=== PATIENT | female | born 1935 | race African-American/Black ===

== ENCOUNTER → 2020-03-17 | Outpatient (CLI) | payer OTHER ==
[~2020-03-17] MED LIST: ATENOLOL 50MG T50 M1 PO; CALCIUM 500+D1 EAC2 PO; CLARITIN10 M1 PO; DRY EYE RELIEF15 ML OPHTHALMIC; HYDROCHLOROTHIA25 M2 PO; IBUPROFEN200 M1 PO; MULTI VITAMIN1 EACH PO; NORVASC5 MG PO; VITAMIN B-121000 MC2 SUBLING; VITAMIN C500 M2 PO
== END ==
LOC: LAB 08:00
PROVIDERS: ATTEND Student in an Organized Health Care Education/Training Program
DX: Z01.812 Encounter for preprocedural laboratory examination (principal); Z11.59 Encounter for screening for other viral diseases

== ENCOUNTER 2020-03-22 10:51 | Day surgery (SDC) | payer OTHER ==
[2020-03-12 09:57] LABS: URINE BILIRUBIN NEGATIVE (Negative); URINE BLOOD NEGATIVE (Negative); URINE CLARITY CLEAR; URINE COLOR YELLOW; URINE GLUCOSE-RANDOM* NEGATIVE (Negative); URINE KETONES NEGATIVE (Negative); URINE NITRITE-REFLEX NEGATIVE (Negative); URINE PROTEIN (DIPSTICK) NEGATIVE (Negative); URINE UROBILINOGEN 0.2 E.U./dl (0.2-1.0)
[2020-03-12 09:58] LABS: URINE LEUKOCYTES-REFLEX 1+ (Negative)
[2020-03-12 10:03] LABS: BACTERIA-REFLEX None Seen /HPF (None Seen); CRYSTALS None Seen /LPF (None Seen); SQUAMOUS 0-3 Few /LPF (0-3); URINE RBC None Seen /HPF (0-2); URINE WBC-REFLEX 0-5 Rare /HPF (0-5)
[2020-03-12 10:12] LABS: PROTIME 10.1 Seconds (9.3-11.4)
[2020-03-12 12:40] LABS: HEMOGLOBIN 12.8 gm/dL (12.0-15.0); MCH 31.4 pg (26.0-34.0); MCHC 33.6 g/dL (28.0-37.0); MCV 93.4 fL (80.0-100.0); RBC 4.07 mil/uL (4.20-5.00); RDW 13.2 % (10.5-14.5); WBC 5.8 thou/uL (4.0-11.0)
[2020-03-12 12:44] LABS: ALBUMIN 4.2 g/dL (3.4-5.0); CALCIUM 9.5 mg/dL (8.5-10.1)
[~2020-03-22] VITALS: Ht 162.6 cm; Wt 56.2 kg
[2020-03-22 13:17] VITALS: BP 177/76
[2020-03-22 16:48] VITALS: BP 149/82
--- NOTE | 2020-03-22 17:17 | NUR ---
PATIENT ADMITTED FROM OR WITH LEFT KNEE REPLACEMENT. BRITTANY DRESSING/SCD'S/KNEE HIGH STEWART HOSE, POLAR PACK. PATIENT DENIES PAIN, NO C/O NAUSEA. REGULAR DIET IN FOR DINNER. PAIENT HAS RIGHT FOREARM IV IN PLACE, IV FLUIDS AT 100CC/HR. PATIEN HAS URINATED X 3, PATIENT C/O LEAKAGE/RETENTION/URGENCY, NO C/O PAIN WHEN URINATING, PATIENT JUST FINISHED PO ABX FOR UTI. REPORT GIVEN TO DANIAL/RN. ADMISSION COMPLETED, EXCEPT CARE PLAN.
[2020-03-22 21:07] VITALS: BP 141/65
--- NOTE | 2020-03-23 01:46 | NUR ---
ASSUMED PT CARE AT APPROX 1900.PT DENIED PAIN SO FAR.PT HAD TWO EPISODE OF N/V WHEN SHE GOT OUT OF BED TO THE [facility],MANAGED WITH MED.PT VOIDING ADEQUATELY.PT CONT ON IVF AND IV ABX ORDERED.DRSG TO HER L HIPC/D/I WITH POLAR PACK IN PLACE.STEWART AND SCD IN PLACE.PT RESTING ON HER BED AT THIS TIME.FALL PRECAUTIONS IN PLACE,CALL LIGHT WITHIN REACH.
[2020-03-23 06:47] LABS: HEMATOCRIT 28.4 % (37.0-47.0); HEMOGLOBIN 9.6 gm/dL (12.0-15.0); MCH 31.3 pg (26.0-34.0); MCHC 33.9 g/dL (28.0-37.0); MCV 92.4 fL (80.0-100.0); RBC 3.08 mil/uL (4.20-5.00); WBC 11.7 thou/uL (4.0-11.0)
--- NOTE | 2020-03-23 09:02 | NUR ---
ASSESSMENT: CM REVIEWED CHART AND SPOKE WITH PATIENT WELL WITH HER DAUGHTER. PT HAD TOTAL KNEE REPLACEMENT. PT REPORTS SHE LIVES AT HOME ALONE IN A HOUSE. PT REPORTS 2 STEPS TO ENTER THROUGH THE FRONT DOOR AND IF SHE GOES THROUGH THE GARAGE THERE IS ABOUT 10 STEPS WITH HANDRAILS TO THE MAIN LEVEL. PT REPORTS SHE USES A CANE FOR AMBULATION BUT REPORTS HAVING A WALKER AT HOME. PT STATES SHE ALSO HAS A COMMODE AT HOME. PT REPORTS SHE HAS HAD [facility] IN THE PAST AND STATES SHE WAS TOLD SHE WILL LIKELY NEED HH AGAIN AND WANTS TO USE THE SAME COMPANY. CM FAXED REFERRAL TO [facility] AND AWAITING THEIR INPUT. PT REPORTS SHE HAS NOT BEEN TO A SNF. PT IS TO WORK WITH THERAPY. CM WILL CONTINUE TO FOLLOW TO ASSIST NEEDED.
[2020-03-23 09:27] VITALS: BP 116/56
[2020-03-23 10:45] VITALS: BP 116/56
[2020-03-23 11:43] VITALS: BP 116/56
[2020-03-23 15:11] VITALS: BP 116/56
--- NOTE | 2020-03-23 15:55 | NUR ---
PT CARE ASSUMED AT 0700. A&Ox4. PT PASSED PT AND OT TO DISCHARGE. PT UP AND WALKING WITH BASELINE CONFUSION. DISCHARGED PT TO DAUGHTER. PT VERY INPATIENT AND CONTINUED TO WALK UP TO THE NURSES STATION WITH A WALKER. REFUSED TO GET DRESSED WITH HELP AND INSISTED ON DOING IT HERSELF. POST OP INSTRUCTIONS GIVEN WITH NO FURTHER QUESTIONS. STEWART HOSE/SCD'S IN PLACE. IV REMOVED. POLAR PACK/BRITTANY DRESSING IN PLACE. FALL PROTOCOL WAS FOLLOWED. DISCHARGE DONE WITH NO FURTHER INSTRUCTIONS.
--- NOTE | 2020-03-23 15:59 | O ---
[facility] [place] [address] OPERATIVE REPORT Name: DI COLON Room #: 440-P [place] [facility] [place] [id number] Admission: 03/22/20 Attend Phys: Robert Hu MD Discharge: Date of : 35 Report #: [id number] THIS REPORT FOR: cc: Wilfred Mena MD,Wilfred Hu,Robert Grande MD ~ CC: Wilfred uH DATE OF SERVICE: 03/22/2020 PREOPERATIVE DIAGNOSIS: Left knee valgus osteoarthritis. POSTOPERATIVE DIAGNOSIS: Left knee valgus osteoarthritis. PROCEDURE: Left total knee arthroplasty using Navio robotic assistance. SURGEON: Robert Hu MD. GOLF CART MECHANIC: Pili Winston PA-C. INDICATIONS FOR GOLF CART MECHANIC: Throughout the case, extensive retraction and manipulation of the knee was required. This was afforded to me by my technical assistant. ANESTHESIA: LMA with an adductor canal block. IMPLANTS: [employer]hew size 6 Journey II BCS cobalt chrome femur, size 4 tibia, size 11 constrained polyethylene and size 32 patella. ESTIMATED BLOOD LOSS: 25 mL. TOURNIQUET TIME: 54 minutes. COMPLICATIONS: None. SPECIMENS: None. CONDITION UPON LEAVING THE OPERATING ROOM: Stable. INDICATIONS FOR PROCEDURE: The patient is an 84-year-old female with left knee valgus osteoarthritis. She had failed conservative measures for this and after discussion with her, she elected for left total knee arthroplasty. DESCRIPTION OF PROCEDURE: Risks, benefits, alternatives, complications were discussed in detail with the patient including but not limited to risk of [facility] [address] [place] [address] OPERATIVE REPORT Name: DI COLON Room #: 440-P [place] [facility] [place]#: [id number] Admission: 03/22/20 Attend Phys: Robert Hu MD Discharge: Date of : 35 Report #: [id number] anesthesia, risk of damage to nerves, arteries, blood vessels, risk for infection, bleeding, risk for continued knee pain, need for reoperation. Informed consent was obtained from the patient. Left knee was appropriately marked in the preoperative holding area. IV Ancef was given for preoperative antibiotics. She was brought to the operating room and placed in supine position on operating room table. LMA anesthesia was induced without complication. Tourniquet was placed on the left thigh. Left lower extremity was prepped and draped in normal sterile fashion. Timeout was performed properly identifying the patient and procedure as well as instrumentation. All in the operating room were in agreement. Left lower extremity was exsanguinated, tourniquet was inflated. Tourniquet time was 54 minutes. Standard midline approach to the knee was made with 10 blade through the skin. Dissection was taken down sharply to the fascia and deep flaps were developed medially and laterally. Fresh 10 blade was used to make a medial parapatellar arthrotomy and the knee was inspected. There was severe valgus osteoarthritis of the knee. Reference pins were placed in the femur and the tibia. Knee was then digitally mapped using Must[employer] robotic system. We sized the size 6 femur with a size 4 tibia and a size 10 spacer. After acceptance of the intraoperative plan, distal femoral cut was made with a Navio bur. Distal femoral cutting block was pinned in place and chamfer cuts were made on the femur. Attention was then turned to the tibia. Remainder of the menisci removed with Bovie cautery. Tibial resection guide was pinned in place using the Navio for placement and tibial resection was made. After this, flexion and extension gaps were checked and found to have good balance laterally in flexion and extension, medially she had significant laxity due to her underlying valgus deformity, it was felt that we would make up for this with a constrained implant. The tibia was sized, found to be a size 4. Size 4 tibial trial was placed, pinned and punched. A size 5 femoral trial was placed and the box cut was made. This was then trialed with a size 10 and then size 11 polyethylene. The knee demonstrated 1-2 mm of laxity laterally throughout range of motion with 3-4 mm medially. Again, it was felt we could make up for this with a constrained implant. The 9 mm of bone was resected from the posterior surface of the patella and a size 32 patellar trial button was placed. Knee was taken through range of motion, found to be stable, found to have good patellar tracking. Trial components were removed. Bony ends were thoroughly irrigated with normal saline. A final size 4 tibia, size 6 Journey II BCS cobalt chrome femur and a size 32 patella were cemented in place using standard cementation techniques. While the cement cured, a periarticular injection consisting of morphine, ropivacaine, epinephrine, Toradol was placed around the knee joint capsule. A gram of vancomycin was placed deep in the joint. Final size 11 constrained polyethylene was placed. The fascia was closed with 0 Vicryl, skin was closed with 2-0 Vicryl, 3-0 Monocryl. Dermabond and a BRITTANY dressing was [address] [address] OPERATIVE REPORT Name: DI COLON Room #: 440-P REG [facility]#: [id number] Admission: 03/22/20 Attend Phys: Robert Hu MD Discharge: Date of : 35 Report #: [id number] applied. The patient tolerated this procedure well and went to recovery room under care of anesthesia postoperatively. <ELECTRONICALLY SIGNED> By: Robert Hu MD 03/23/20 [id number] Robert Hu MD /nt
== END 2020-03-23 16:07 | disposition home or self-care (01) ==
LOC: OR 10:51 → TBA 10:52 → OR 11:37 → 4S 15:45 → OR 03-23 16:07
PROVIDERS: ATTEND Orthopaedic Surgery
DX: M17.12 Unilateral primary osteoarthritis, left knee (principal); M25.562 Pain in left knee; I10 Essential (primary) hypertension; E78.5 Hyperlipidemia, unspecified; Z96.641 Presence of right artificial hip joint; Z98.890 Other specified postprocedural states; Z79.899 Other long term (current) drug therapy; Z87.891 Personal history of nicotine dependence; Z88.8 Allergy status to other drugs, medicaments and biological substances
CPT/HCPCS: 10102; 50010; 50101; 50415; 50954; 51130; 51225; 51320; 52001; 52282; 53000; 53078; 53370; 54118; 56527; 56528; 57095; 57103; 57110; 57127; 57179; 64043; 65060